=== PATIENT | female | born 1935 | race Caucasian/White ===

== ENCOUNTER 2017-08-02 17:06 | Inpatient (IN) ==
[2017-08-02] MEDS ORDERED: SODIUM CHLORIDE 0.9% 500 ML IV STA (17:17)
[2017-08-02] MEDS ORDERED: SODIUM CHLORIDE 0.9% 1,000 ML IV STA (17:23)
[2017-08-02 18:19] LABS: Eosinophils % 0.4 % (0.00-10.9); Hematocrit 38.9 VOL% (35.7-47.0); Hemoglobin 12.8 GM/DL (12.0-16.0); Lymphocytes # 0.2 10*3/uL (1.4-4.0); Lymphocytes % 7.2 % (21.3-54.2); Mean Corpuscular HGB Conc 32.9 GM/DL (32-36); Mean Corpuscular Hemoglobin 31 PG (27-34); Mean Corpuscular Volume 95.6 FL (87-102); Mean Platelet Volume 8.9 FL (9.6-12.0); Monocytes % 0.4 % (1.7-12.7); Neutrophils # 2.2 10*3/uL (1.4-7.4); Platelet Count 215 T/CUMM (130-400); Red Blood Count 4.07 MC/CUMM (3.8-5.5); Red Cell Distribution Width 12.8 % (9.3-17.3); White Blood Count 2.4 T/CUMM (4-12)
[2017-08-02] MEDS ORDERED: ACETAMINOPHEN 500 MG TABLET ONE (18:19)
[2017-08-02] MEDS ORDERED: ACETAMINOPHEN 500 MG TABLET PO STA (18:25)
[2017-08-02 18:41] LABS: Albumin 3.7 G/DL (3.4-5.0); Bilirubin,Total 0.5 MG/DL (0.2-1.0); Calcium 8.8 MG/DL (8.5-10.1); Osmolality,Calculated 279.4 MOS/KG (273-304); Potassium 3.6 MMOL/L (3.5-5.1); Total Protein 7.1 G/DL (6.4-8.3)
[2017-08-02 18:47] LABS: Apearance,Urine CLEAR (Clear); Bilirubin,Urine Negative (Negative); Blood, Urine Negative (Negative); Glucose,Urine (UA) Negative (Negative); Ketones,Urine Negative (Negative); Nitrite,Urine Negative (Negative); Protein,Urine Negative; RBC,Urine 2 /HPF (0-4); Urine Color Yellow (Yellow); Urine Specific Gravity 1.008 (1.001-1.035); Urine Urobilinogen < 2.0 EU/DL (0.2-1.0); WBC,Urine <1 /HPF (0-6)
[2017-08-02 18:48] LABS: PT Patient Result 10.4 SECS; Partial Thromboplastin Time 21.4 SECS (0-40)
[2017-08-02 19:30] LABS: Lactic Acid 3.4 MMOL/L (0.4-2.0)
[2017-08-02 21:28] LABS: Band Neutrophils 4 % (0-10); Lymphocytes 6 % (20-55); Ovalocytes Slight; Segmented Neutrophils 90 % (50-85); Total Cells Counted 100
[2017-08-02 21:29] LABS: Platelet Estimate Adequate; Polychromasia Slight
[2017-08-02] MEDS ORDERED: ALBUTEROL/IPRATROPIUM 3 ML NEB RESP TX PRN (21:31)
[2017-08-02] MEDS ORDERED: SODIUM CHLORIDE 0.9% 500 ML IV ONE (21:31)
[2017-08-02] MEDS ORDERED: ONDANSETRON 4 MG/2 ML VIAL IV PRN (21:31)
[2017-08-02] MEDS ORDERED: ACETAMINOPHEN 325 MG TABLET PO PRN (21:31)
[2017-08-02 23:00] LABS: Lactic Acid 4.8 MMOL/L (0.4-2.0)
[2017-08-02] MEDS: SODIUM CHLORIDE 0.9% 1,000 ML IV SCH (23:26)
[2017-08-02] MEDS: ENOXAPARIN 40 MG/0.4 ML SYRINGE SUBCUT SCH (23:27)
[2017-08-02] MEDS: DOCUSATE SODIUM 100 MG CAPSULE PO SCH (23:27)
[2017-08-02] MEDS: LEVOFLOXACIN INJ 750 MG in PREMIX 1 EACH IV SCH (23:32)
[2017-08-03] MEDS: ALBUTEROL/IPRATROPIUM 3 ML NEB RESP TX SCH ×5 (00:51→20:21)
[2017-08-03 02:25] LABS: Basophils % 0.6 % (0.0-0.8); Eosinophils % 0.6 % (0.00-10.9); Hematocrit 33.6 VOL% (35.7-47.0); Hemoglobin 11.1 GM/DL (12.0-16.0); Immature Granulocytes % 0.6 %; Immature Granulocytes Absolute 0.01 #; Lymphocytes # 0.1 10*3/uL (1.4-4.0); Lymphocytes % 7.1 % (21.3-54.2); Mean Corpuscular Hemoglobin 32 PG (27-34); Mean Corpuscular Volume 97.1 FL (87-102); Mean Platelet Volume 9.3 FL (9.6-12.0); Monocytes % 1.9 % (1.7-12.7); NRBC # 0.03 10*3/uL; Neutrophils # 1.4 10*3/uL (1.4-7.4); Neutrophils % 89.2 % (38.7-73.9); Platelet Count 116 T/CUMM (130-400); Red Blood Count 3.46 MC/CUMM (3.8-5.5); Red Cell Distribution Width 13.2 % (9.3-17.3); White Blood Count 1.5 T/CUMM (4-12)
[2017-08-03 03:06] LABS: Band Neutrophils 18 % (0-10); Lymphocytes 12 % (20-55); Metamyelocytes 6 %; Myelocytes 10 %; Nucleated Red Blood Cells 1 (0-5); Segmented Neutrophils 50 % (50-85)
[2017-08-03 03:08] LABS: Platelet Estimate Adequate
[2017-08-03 03:09] LABS: Hypochromasia Slight; Total Cells Counted 100
[2017-08-03 03:11] LABS: Calcium 7.7 MG/DL (8.5-10.1); Osmolality,Calculated 277.7 MOS/KG (273-304); Potassium 3.1 MMOL/L (3.5-5.1)
[2017-08-03] MEDS ORDERED: CALCIUM GLUCONATE 1,000 MG in SODIUM CHLORIDE 0.9% 100 ML IV ONE (04:44)
[2017-08-03] MEDS ORDERED: POTASSIUM CHLORIDE 20 MEQ TABLET PO PRN (04:44)
[2017-08-03] MEDS ORDERED: MAGNESIUM SULF RIDER 2 GM in PREMIX 1 EACH IV PRN (04:44)
[2017-08-03] MEDS ORDERED: MAGNESIUM SULF RIDER 4 GM in PREMIX 1 EACH IV PRN (04:44)
[2017-08-03] MEDS ORDERED: SODIUM CHLORIDE 0.9% 1,000 ML IV ONE (04:50)
[2017-08-03] MEDS ORDERED: CEFEPIME 2,000 MG in SYRINGE 1 EACH IV SCH (05:00)
[2017-08-03] MEDS ORDERED: SODIUM CHLORIDE 0.9% 1,000 ML IV SCH (07:55)
[2017-08-03] MEDS ORDERED: IMMUNE GLOBULIN 10% 40 GM in PREMIX 1 EACH IV ONE (08:55)
[2017-08-03] MEDS ORDERED: MAGNESIUM SULF RIDER 4 GM in PREMIX 1 EACH IV ONE (08:59)
[2017-08-03] MEDS: SODIUM CHLORIDE 0.45% 1,000 ML IV SCH (09:30)
[2017-08-03] MEDS: DEXAMETHASONE 4 MG/1 ML VIAL IV SCH ×2 (09:54→22:27)
[2017-08-03 09:56] LABS: Immunoglobulin A < 31 MG/DL (70-400); Immunoglobulin G 1300 MG/DL (700-1600); Immunoglobulin M < 21 MG/DL (40-230)
[2017-08-03] MEDS: DOCUSATE SODIUM 100 MG CAPSULE PO SCH ×2 (09:56→22:27)
[2017-08-03] MEDS: POTASSIUM CHLORIDE 20 MEQ TABLET PO SCH ×3 (09:56→18:27)
[2017-08-03] MEDS: PANTOPRAZOLE 40 MG TABLET PO SCH (09:56)
[2017-08-03 11:21] LABS: Immunoglobulin A < 31 MG/DL (70-400); Immunoglobulin G 1280 MG/DL (700-1600); Total Protein 5.4 G/DL (6.4-8.3)
[2017-08-03 11:24] LABS: Immunoglobulin M < 21 MG/DL (40-230)
[2017-08-03] MEDS: NOREPINEPHRINE 8 MG in SODIUM CHLORIDE 0.9% 242 ML IV SCH ×2 (11:58→12:15)
[2017-08-03] MEDS: ENOXAPARIN 40 MG/0.4 ML SYRINGE SUBCUT SCH (22:36)
[2017-08-03] MEDS: LEVOFLOXACIN INJ 750 MG in PREMIX 1 EACH IV SCH (22:41)
[2017-08-03] MEDS: CEFEPIME 2,000 MG in SYRINGE 1 EACH IV SCH (23:40)
[2017-08-04] MEDS: ALBUTEROL/IPRATROPIUM 3 ML NEB RESP TX SCH ×4 (01:51→20:21)
[2017-08-04] MEDS: SODIUM CHLORIDE 0.45% 1,000 ML IV SCH (01:55)
[2017-08-04 05:56] LABS: Basophils # 0.1 10*3/uL (0.0-0.2); Basophils % 0.4 % (0.0-0.8); Eosinophils % 0.1 % (0.00-10.9); Hematocrit 32.9 VOL% (35.7-47.0); Hemoglobin 11.3 GM/DL (12.0-16.0); Immature Granulocytes Absolute 2.34 #; Lymphocytes # 0.4 10*3/uL (1.4-4.0); Lymphocytes % 2.5 % (21.3-54.2); Mean Corpuscular HGB Conc 34.3 GM/DL (32-36); Mean Corpuscular Hemoglobin 33 PG (27-34); Mean Corpuscular Volume 95.1 FL (87-102); Mean Platelet Volume 10.6 FL (9.6-12.0); Monocytes # 0.9 10*3/uL (0.11-0.8); Monocytes % 5.8 % (1.7-12.7); Neutrophils # 11.9 10*3/uL (1.4-7.4); Neutrophils % 76.2 % (38.7-73.9); Red Blood Count 3.46 MC/CUMM (3.8-5.5); Red Cell Distribution Width 13.2 % (9.3-17.3); White Blood Count 15.6 T/CUMM (4-12)
[2017-08-04 06:06] LABS: Immunoglobulin A (Chem) < 31 MG/DL (70-400); Immunoglobulin M (Chem) < 21 MG/DL (40-230); Total Protein (Chem) 5.4 G/DL (6.4-8.3)
[2017-08-04 06:07] LABS: Platelet Count 77 T/CUMM (130-400)
[2017-08-04 06:29] LABS: Band Neutrophils 4 % (0-10); Hypochromasia Slight; Lymphocytes 4 % (20-55); Platelet Estimate Decreased; Segmented Neutrophils 85 % (50-85); Total Cells Counted 100
[2017-08-04 06:30] LABS: Burr Cells Slight; Calcium 7.3 MG/DL (8.5-10.1); Giant Platelets Few; Magnesium 2.4 MG/DL (1.8-2.4); Osmolality,Calculated 267.5 MOS/KG (273-304); Ovalocytes Slight; Potassium 4.2 MMOL/L (3.5-5.1)
[2017-08-04 09:28] LABS: Albumin (SPE) 3.1 G/DL (3.2-5.3); Albumin (SPE) Rel % 58.8 %; Alpha 1 (SPE) 0.2 G/DL (0.1-0.4); Alpha 2 (SPE) 0.5 G/DL (0.4-1.0); Alpha 2 (SPE) Rel % 9.9 %; Beta (SPE) 0.5 G/DL (0.5-1.1); Beta (SPE) Rel % 9.2 %
[2017-08-04 09:29] LABS: Gamma (SPE) Rel % 19.1 %
[2017-08-04 09:32] LABS: Immunoglobulin G (Chem) 1280 MG/DL (700-1600)
[2017-08-04] MEDS: DOCUSATE SODIUM 100 MG CAPSULE PO SCH ×2 (10:50→21:16)
[2017-08-04] MEDS: PANTOPRAZOLE 40 MG TABLET PO SCH (10:50)
[2017-08-04] MEDS: SODIUM CHLORIDE 0.9% 1,000 ML IV SCH (10:52)
[2017-08-04] MEDS: CEFEPIME 2,000 MG in SYRINGE 1 EACH IV SCH ×2 (11:57→21:16)
[2017-08-04] MEDS: DEXAMETHASONE 4 MG/1 ML VIAL IV SCH (12:00)
[2017-08-04] MEDS ORDERED: FUROSEMIDE 20 MG/2 ML VIAL IV ONE (17:13)
[2017-08-04] MEDS: LEVOFLOXACIN INJ 750 MG in PREMIX 1 EACH IV SCH (23:04)
[2017-08-05] MEDS: ALBUTEROL/IPRATROPIUM 3 ML NEB RESP TX SCH ×4 (01:28→19:15)
[2017-08-05 08:17] LABS: Immuno Free Light Chain Kappa 7.62 MG/DL (0.33-1.94); Immuno Free Light Chain Lambda 0.58 MG/DL (0.57-2.63); Immuno Free Light Chain Ratio 13.14 MG/DL (0.26-1.65)
[2017-08-05] MEDS: PANTOPRAZOLE 40 MG TABLET PO SCH (09:38)
[2017-08-05] MEDS: DOCUSATE SODIUM 100 MG CAPSULE PO SCH ×2 (09:38→22:44)
[2017-08-05] MEDS: CEFEPIME 2,000 MG in SYRINGE 1 EACH IV SCH ×2 (09:38→17:42)
[2017-08-05 10:27] LABS: Basophils # 0.1 10*3/uL (0.0-0.2); Basophils % 0.5 % (0.0-0.8); Hematocrit 29.4 VOL% (35.7-47.0); Hemoglobin 10.1 GM/DL (12.0-16.0); Immature Granulocytes % 0.4 %; Immature Granulocytes Absolute 0.07 #; Lymphocytes # 0.8 10*3/uL (1.4-4.0); Lymphocytes % 4.3 % (21.3-54.2); Mean Corpuscular HGB Conc 34.4 GM/DL (32-36); Mean Corpuscular Hemoglobin 32 PG (27-34); Mean Corpuscular Volume 92.7 FL (87-102); Monocytes # 0.3 10*3/uL (0.11-0.8); Monocytes % 1.8 % (1.7-12.7); Neutrophils # 17.4 10*3/uL (1.4-7.4); Red Blood Count 3.17 MC/CUMM (3.8-5.5); Red Cell Distribution Width 13.5 % (9.3-17.3); White Blood Count 18.7 T/CUMM (4-12)
[2017-08-05 10:56] LABS: Platelet Count 49 T/CUMM (130-400)
[2017-08-05 10:58] LABS: Band Neutrophils 4 % (0-10); Lymphocytes 3 % (20-55); Segmented Neutrophils 84 % (50-85); Total Cells Counted 100
[2017-08-05 10:59] LABS: Hypochromasia 1+; Microcytosis 1+; Platelet Estimate Decreased
[2017-08-05] MEDS ORDERED: TUBERCULIN SKIN TEST 0.1 ML SYRINGE INTRADERM ONE (13:00)
[2017-08-05] MEDS: FUROSEMIDE 20 MG/2 ML VIAL IV SCH (17:41)
[2017-08-05] MEDS: CARVEDILOL 3.125 MG TABLET PO SCH (22:44)
[2017-08-05] MEDS: LEVOFLOXACIN INJ 750 MG in PREMIX 1 EACH IV SCH (22:45)
[2017-08-05] MEDS: MELATONIN 3 MG TABLET PO PRN (23:35)
[2017-08-06] MEDS: ALBUTEROL/IPRATROPIUM 3 ML NEB RESP TX SCH ×4 (00:56→20:11)
[2017-08-06] MEDS: CEFEPIME 2,000 MG in SYRINGE 1 EACH IV SCH ×2 (01:49→10:32)
[2017-08-06 06:32] LABS: Basophils # 0.1 10*3/uL (0.0-0.2); Basophils % 0.5 % (0.0-0.8); Eosinophils % 0.1 % (0.00-10.9); Hematocrit 29.9 VOL% (35.7-47.0); Hemoglobin 10.3 GM/DL (12.0-16.0); Immature Granulocytes % 6.1 %; Immature Granulocytes Absolute 1.37 #; Lymphocytes # 0.9 10*3/uL (1.4-4.0); Lymphocytes % 4.1 % (21.3-54.2); Mean Corpuscular HGB Conc 34.4 GM/DL (32-36); Mean Corpuscular Hemoglobin 32 PG (27-34); Mean Corpuscular Volume 93.4 FL (87-102); Mean Platelet Volume 11.6 FL (9.6-12.0); Monocytes # 1.4 10*3/uL (0.11-0.8); Monocytes % 6.3 % (1.7-12.7); Neutrophils # 18.7 10*3/uL (1.4-7.4); Neutrophils % 82.9 % (38.7-73.9); Red Cell Distribution Width 13.3 % (9.3-17.3); White Blood Count 22.5 T/CUMM (4-12)
[2017-08-06 06:36] LABS: Platelet Count 53 T/CUMM (130-400)
[2017-08-06 06:56] LABS: Band Neutrophils 1 % (0-10); Eosinophils 1 % (0-10); Hypochromasia 1+; Lymphocytes 4 % (20-55); Microcytosis Slight; Ovalocytes Slight; Platelet Estimate Decreased; Segmented Neutrophils 88 % (50-85); Total Cells Counted 100
[2017-08-06] MEDS: FUROSEMIDE 20 MG/2 ML VIAL IV SCH ×2 (10:25→16:53)
[2017-08-06] MEDS: CARVEDILOL 3.125 MG TABLET PO SCH ×2 (10:32→16:53)
[2017-08-06] MEDS: POTASSIUM CHLORIDE 20 MEQ TABLET PO SCH (10:32)
[2017-08-06] MEDS: PANTOPRAZOLE 40 MG TABLET PO SCH (10:32)
[2017-08-06] MEDS: DOCUSATE SODIUM 100 MG CAPSULE PO SCH ×2 (10:32→22:37)
[2017-08-06] MEDS ORDERED: SODIUM CHLORIDE 0.9% 1,000 ML IV SCH (16:30)
[2017-08-06] MEDS: CEFTRIAXONE IV SCH (18:04)
[2017-08-06] MEDS: MELATONIN 3 MG TABLET PO PRN (22:37)
[2017-08-07] MEDS: ALBUTEROL/IPRATROPIUM 3 ML NEB RESP TX SCH ×2 (02:18→08:02)
[2017-08-07 05:50] LABS: Basophils # 0.1 10*3/uL (0.0-0.2); Basophils % 0.5 % (0.0-0.8); Eosinophils # 0.1 10*3/uL (0.0-0.87); Eosinophils % 0.6 % (0.00-10.9); Hematocrit 31.5 VOL% (35.7-47.0); Immature Granulocytes % 1.2 %; Immature Granulocytes Absolute 0.25 #; Lymphocytes # 1.8 10*3/uL (1.4-4.0); Lymphocytes % 8.9 % (21.3-54.2); Mean Corpuscular HGB Conc 34.9 GM/DL (32-36); Mean Corpuscular Hemoglobin 32 PG (27-34); Mean Corpuscular Volume 92.1 FL (87-102); Mean Platelet Volume 11.2 FL (9.6-12.0); Monocytes # 2.1 10*3/uL (0.11-0.8); NRBC # 0.02 10*3/uL; Neutrophils # 16.2 10*3/uL (1.4-7.4); Neutrophils % 78.8 % (38.7-73.9); Red Blood Count 3.42 MC/CUMM (3.8-5.5); Red Cell Distribution Width 13.5 % (9.3-17.3); White Blood Count 20.5 T/CUMM (4-12)
[2017-08-07 05:54] LABS: Platelet Count 63 T/CUMM (130-400)
[2017-08-07 06:13] LABS: Band Neutrophils 2 % (0-10); Giant Platelets Few; Hypochromasia 1+; Lymphocytes 12 % (20-55); Microcytosis Slight; Ovalocytes Slight; Platelet Estimate Decreased; Segmented Neutrophils 78 % (50-85); Total Cells Counted 100
[2017-08-07 06:26] LABS: Calcium 8.2 MG/DL (8.5-10.1); Osmolality,Calculated 277.5 MOS/KG (273-304); Potassium 3.3 MMOL/L (3.5-5.1)
[2017-08-07] MEDS ORDERED: LIDOCAINE 2% VISCOUS 100 ML BOTTLE ONE (09:18)
[2017-08-07] MEDS: CARVEDILOL 3.125 MG TABLET PO SCH (10:38)
[2017-08-07] MEDS: POTASSIUM CHLORIDE 20 MEQ TABLET PO SCH (10:39)
[2017-08-07] MEDS: DOCUSATE SODIUM 100 MG CAPSULE PO SCH (10:39)
[2017-08-07] MEDS: FUROSEMIDE 20 MG/2 ML VIAL IV SCH (10:40)
[2017-08-07] MEDS: PANTOPRAZOLE 40 MG TABLET PO SCH (10:40)
[2017-08-07 12:22] VITALS: BP 122/50
[2017-08-07] MEDS: CEFTRIAXONE IV SCH (12:25)
== END 2017-08-07 12:44 | DRG 871 ==
LOC: N.ED 17:06 → SUATTDRO 19:45 → N.EDINP 19:45 → N.2E 20:19 → N.CC 08-03 08:15 → N.2E 08-03 18:02
PROVIDERS: ADMIT Internal Medicine; ATTEND Internal Medicine